=== PATIENT | female | born 1955 | race Hispanic/Latino ===

== ENCOUNTER 2019-12-28 21:54 | Inpatient (IN) | payer OTHER ==
[~2019-12-28 21:54] MED LIST: Heparin 10,000 UNITS/ 10 ML VIAL ONE
[2019-12-28] MEDS ORDERED: Midazolam HCl 5 mg/ml Vial ONE (21:59)
[2019-12-28] MEDS ORDERED: Amiodarone 150 MG/3 ML VIAL ONE (22:00)
[2019-12-28 22:18] LABS: Base Excess-Venous -5.5 mmol/L (-2.0 to 3.0); Bicarbonate (HCO3v) 19.8 mmol/L (22.0-28.0); CO2 Tension (PvCO2) 37.3 mmHg (40.0-50.0); Calcium, Ionized 1.02 mmol/L (See Comments:); Chloride 105 mmol/L (98-107); Hemoglobin - Calc 12.8 g/dL (12.0-16.0); Sodium 143 mmol/L (138-145); vO2 Saturation-calc 98.6 % (60.0-85.0)
[2019-12-28] MEDS ORDERED: Amiodarone 150 MG, Admixture Fee 1 EACH in Dextrose 5% in Water 100 ML IVPB SCH (22:30)
[2019-12-28] MEDS ORDERED: Potassium Chloride 10 MEQ in Premix Bag 1 BAG IVPB SCH (22:30)
[2019-12-28 22:51] LABS: #Basophils 0.1 thou/uL (0.0-0.2); #Eosinphils 0.2 thou/uL (0.0-0.7); #Lymphocytes 2.7 thou/uL (1.20-3.40); #Monocytes 0.6 thou/uL (0.11-0.59); #Neutrophils 11.8 thou/uL (1.40-6.50); %Basophils 0.5 % (0.0-1.0); %Eosinophils 1.2 % (0.0-10.0); %Lymphocytes 17.5 % (21.0-51.0); %Neutrophils 76.9 % (42.0-75.0); Hemoglobin 12.2 g/dL (12.0-16.0); Mean Corpuscular HGB CONC 33.2 g/dL (32.0-36.0); Mean Corpuscular Hemoglobin 30.5 pg (27.0-31.0); Mean Corpuscular Volume 91.9 fL (78.0-98.0); Mean Platelet Volume 8.4 fL (7.4-10.4); Platelet Count 223 thou/uL (130-400); RBC Distribution Width 11.6 % (11.5-14.5); White Blood Cell (WBC) Count 15.3 thou/uL (4.8-10.8)
[2019-12-28 22:54] LABS: INR-International Normal Ratio 1.1; PTT 28.9 sec (22.9-36.1); Prothrombin Time 14.6 sec (12.0-14.7)
[2019-12-28] MEDS ORDERED: Heparin 25,000 units/D5W 500 ML ONE (22:54)
[2019-12-28 23:12] LABS: ALT (SGPT) 114 U/L (8-55); AST (SGOT) 112 U/L (5-34); Albumin 3.5 g/dL (3.4-4.8); Alkaline Phosphatase 78 U/L (40-110); Anion Gap 16 mmol/L (10-20); BUN (Urea Nitrogen) 14 mg/dL (9.8-20.1); Bilirubin, Total 0.6 mg/dL (0.2-1.2); Calc. Creatinine Clearance 0 mL/min (70-130); Calcium 7.5 mg/dL (7.8-10.44); Carbon Dioxide 19 mmol/L (23-31); Chloride 107 mmol/L (98-107); Estimated GFR-MDRD 49; Globulin 2.1 g/dL (2.4-3.5); Glucose 282 mg/dL (80-115); Magnesium 1.7 mg/dL (1.6-2.6); Protein, Total 5.6 g/dL (6.0-8.3); Sodium 139 mmol/L (136-145)
[2019-12-28] MEDS ORDERED: Midazolam HCl 2 mg/2 ml Vial ONE (23:19)
[2019-12-28] MEDS ORDERED: Heparin 10,000 UNITS/1 ML VIAL ONE (23:28)
[2019-12-28 23:34] LABS: CKMB 2.4 ng/mL (0-6.6)
[2019-12-28] MEDS ORDERED: Metoprolol Tartrate 5 MG/5 ML VIAL ONE (23:54)
[2019-12-28] MEDS ORDERED: Nitroglycerin 100MG/250ML BOT 250 ML ONE (23:58)
[2019-12-29] MEDS ORDERED: Metoprolol Tartrate 5 MG/5 ML VIAL ONE (00:20)
[2019-12-29] MEDS ORDERED: Clopidogrel Bisulfate 300 MG TAB PO SCH (00:30)
[2019-12-29] MEDS ORDERED: Potassium Chloride 20 MEQ TAB PO SCH ×3 (00:30→20:00)
[2019-12-29] MEDS ORDERED: Magnesium Sulfate 3 GM in Sodium Chloride 0.9% 100 ML IVPB SCH (00:30)
[2019-12-29] MEDS ORDERED: Metoprolol Tartrate 25 MG TAB PO SCH ×2 (00:30→09:00)
[2019-12-29] MEDS ORDERED: Acetaminophen 325 MG TAB PO PRN (00:33)
[2019-12-29 01:40] VITALS: BMI 35.3
--- NOTE | 2019-12-29 02:36 | HP ---
REASON FOR ADMISSION: Ventricular tachycardia, rapid sustained unstable, possible acute myocardial infarction. HISTORY OF PRESENT ILLNESS: Ms. Rome is a 64-year-old woman. She is visiting from out of town. She said she was feeling okay and then started feeling progressively weak and short of breath. She had a pulse oximeter and was found to have extremely rapid heart rate. The patient's sister from what I understand also is a physician and her sister who advised her to call an ambulance, which was done. The patient in the ambulance was found to be in ventricular tachycardia. She was attempted cardioversion for the heart rate of 250 beats per minute, wide-complex, but that was not successful on arrival here, the patient was still in ventricular tachycardia with a very rapid rate. She had been given 150 mg of amiodarone and she was given additional 150 mg amiodarone and she was cardioverted multiple times and recurrent ventricular tachycardia finally stabilized. The initial EKG after the patient was cardioverted did not show an acute myocardial infarction, but followup EKG was suspicious for an acute infarction and the patient was taken to the cardiac catheterization lab. The patient was taken immediately to the cardiac catheterization lab. She had multiple episodes of ventricular tachycardia in the pie bakery laborer prior to the procedure being started as we were doing preparations and also during the procedure. PAST MEDICAL HISTORY: The patient otherwise had been healthy. No previous cardiac history. Her only history was high blood pressure on hydrochlorothiazide. FAMILY HISTORY: She had multiple siblings who recently had cardiac events including myocardial infarction. SOCIAL HISTORY: No tobacco or alcohol abuse. REVIEW OF SYSTEMS: CONSTITUTIONAL: No significant weight gain or loss. VISION: No changes. HEARING: No changes. PULMONARY: No cough or wheezing. GASTROINTESTINAL: No nausea vomiting, diarrhea. SKIN: No rashes. NEUROLOGIC: No unilateral weakness or numbness. PSYCHIATRIC: No unusual depression or anxiety. PHYSICAL EXAMINATION: GENERAL: This is an ill-appearing 64-year-old woman. VITAL SIGNS: Blood pressure was 120 systolic when she was not in ventricular tachycardia. The patient mildly diaphoretic, not having chest pain at that time. NECK: Neck veins normal. Carotid normal upstrokes. LUNGS: Clear. CARDIAC: Tachycardic . I do not hear murmur, rub, or gallop. ABDOMEN: Soft and nontender. No hepatosplenomegaly. EXTREMITIES: Cool, but she did have palpable pedal pulses. DIAGNOSTIC STUDIES: EKG as outlined above. She had initially a wide-complex tachycardia, typical ventricular tachycardia. After cardioversion, there was no ST elevation of any significance. Followup did show some ST elevation in AVR with ST depression in lead II. The patient was taken to cardiac catheterization lab. She was found to have recurrent ventricular tachycardia requiring cardioversions. Unfortunately the patient could not be sedated significantly for these as her pressure abruptly dropped in the 40 systolic range when she went into ventricular tachycardia on the arterial line. A total of 3 additional cardioversions were done in the pie bakery laborer. The patient was found to have nonobstructive coronary disease and ejection fraction of 20% in the pie bakery laborer. ASSESSMENT: 1. Ventricular tachycardia, unstable, requiring multiple cardioversions. 2. Hypokalemia, potassium 3.0 related to hydrochlorothiazide. 3. History of hypertension. 4. Coronary artery disease does not appear to be obstructive. PLAN: 1. She is on intravenous amiodarone. 2. Beta blockers very helpful in the pie bakery laborer. 3. EVANS inhibitors as blood pressure allows or Entresto. 4. Replete potassium and magnesium. 5. Electrophysiology consultation, will likely need a defibrillator implantation. Job ID: [id number]
[2019-12-29] MEDS: Amiodarone 450 MG, Admixture Fee 1 EACH in Dextrose 5% in Water 250 ML IVPB SCH ×2 (03:44→23:20)
[2019-12-29 04:50] LABS: Anion Gap 12 mmol/L (10-20); BUN (Urea Nitrogen) 12 mg/dL (9.8-20.1); Calc. Creatinine Clearance 90 mL/min (70-130); Calcium 7.6 mg/dL (7.8-10.44); Carbon Dioxide 22 mmol/L (23-31); Chloride 106 mmol/L (98-107); Estimated GFR-MDRD 69; Glucose 210 mg/dL (80-115); Potassium 3.6 mmol/L (3.5-5.1); Sodium 136 mmol/L (136-145)
[2019-12-29 04:55] LABS: Troponin I 4.925 ng/mL (< 0.028)
[2019-12-29] MEDS: Sodium Chloride 0.9% 1,000 ML IV SCH ×2 (06:12→14:05)
--- NOTE | 2019-12-29 07:07 | RAD ---
AP CHEST: Date: 12/28/2019 HISTORY: Diaphoresis. Tachycardia. FINDINGS: Lungs appear clear. No infiltrate or vascular congestion. Mild cardiomegaly. IMPRESSION: No acute lung process apparent. POS: AGW
[2019-12-29 08:07] LABS: Cardiac Risk 5.5 (Less than 4.5)
[2019-12-29] MEDS: Clopidogrel Bisulfate 75 MG TAB PO SCH (08:23)
[2019-12-29] MEDS: Aspirin 81 mg Enteric Coated Tablet PO SCH (08:23)
--- NOTE | 2019-12-29 08:56 | PRG ---
DATE OF SERVICE: 12/29/2019 SUBJECTIVE: Ms. Rome is doing well this morning. She is not having chest pain or pressure. She is not having ventricular tachycardia. The amiodarone had to be stopped early this morning as she is becoming bradycardic, heart rate of 49. OBJECTIVE: VITAL SIGNS: Her blood pressure is now 110 systolic, pulse is in the mid 50s, sinus. LUNGS: Clear. CARDIAC: Normal S1. Normal S2. ABDOMEN: Soft and nontender. Right groin is fine. EXTREMITIES: No edema. DIAGNOSTIC DATA: Peak troponin was 4.925. EKG, no ST changes today. ASSESSMENT: 1. Repetitive and recurrent ventricular tachycardia, requiring multiple cardioversions for unstable ventricular tachycardia. 2. Cardiomyopathy. 3. Hypokalemia, improved to 3.6. 4. Hypomagnesemia, has been repleted. 5. Increase liver function, probably related to hypoperfusion. PLAN: 1. Beta-booker had to be stopped due to bradycardia. 2. We will resume amiodarone. 3. Continue to raise potassium. 4. She will go for defibrillator implantation either today or tomorrow. Needs pacing to give her beta-blockers for her cardiomyopathy as well as for ventricular arrhythmias. Job ID: [id number]
--- NOTE | 2019-12-29 09:37 | CON ---
DATE OF CONSULTATION: HISTORY OF PRESENT ILLNESS: This is a 64-year-old female, from out of town, who presented to the hospital with chest pain, lightheadedness, and shortness of breath. She thought it was asthma attack. She took 4 puffs of the ProAir. EMS was called in and she was found to be in ventricular tachycardia, underwent cardioversion and amiodarone 150. She then underwent an emergency cardiac cath by medical claims examiner in the ICU, reason for consult. She has never smoked. Has history of asthma for about 20 years. No prior history of pneumonia. PAST SURGICAL HISTORY: Apparently, multiple. 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 HOME MEDICINES: 1. Singulair 10. 2. ProAir. 3. Hydrochlorothiazide 12.5. ALLERGIES: NONE. SOCIAL HISTORY: Secretarial work. REVIEW OF SYSTEMS: Otherwise, pertinent for possible sleep apnea. PHYSICAL EXAMINATION: VITAL SIGNS: Pulse 50, blood pressure 110/87, sats 98% on room air, respirations 23. CHEST: No wheezing or crackles. CARDIAC: Normal S1, S2. No gallops. ABDOMEN: No masses. LABORATORY DATA: X-ray was clear. White cell count 15,000, H and H 12 and 36. Lytes are normal. Blood sugar slightly elevated. ASSESSMENT: Acute coronary syndrome, cardiomyopathy, ventricular tachycardia. PLAN: We will restart some home medicine including one of her inhalers. Otherwise, she is on amiodarone, Plavix, beta blockers. We will follow while in the ICU. Consultation note, 70 minutes, 50% direct patient care. Job ID: [id number]
--- NOTE | 2019-12-29 10:18 | CCLSPC ---
This is done in the setting of just prior to the cardiac catheterization. Also, one was done during the cardiac catheterization. The patient had developed unstable ventricular tachycardia, very rapid rate over 200 beats per minute with severe drop in blood pressure. She was given 200 joules direct current energy. This was not successful in cardioverting her. Then, 300 joules was given, which did convert her. Later, she had recurrent ventricular tachycardia. Again, 300 joules was used, and this did convert her to sinus rhythm and sinus tachycardia. CONCLUSION: Successful cardioversion. Job ID: [id number]
[2019-12-29 12:36] LABS: Anion Gap 13 mmol/L (10-20); BUN (Urea Nitrogen) 10 mg/dL (9.8-20.1); Calc. Creatinine Clearance 96 mL/min (70-130); Carbon Dioxide 19 mmol/L (23-31); Chloride 110 mmol/L (98-107); Estimated GFR-MDRD 74; Glucose 119 mg/dL (80-115); Sodium 137 mmol/L (136-145)
[2019-12-29 12:49] LABS: Critical Call Chem Troponin I RESULT DECREASING; Troponin I 3.852 ng/mL (< 0.028)
--- NOTE | 2019-12-29 14:21 | CON ---
DATE OF CONSULTATION: 12/29/2019 This is Tg Villarreal NP dictating a report for Jim Christine MD. REASON FOR CONSULTATION: Ventricular tachycardia. HISTORY OF PRESENT ILLNESS: Ms. Rome is a 64-year-old woman, visiting from out of town. She had sudden onset of shortness of breath and also weakness. She found her heart rate was extremely rapid and she called 911. She was found to be in ventricular tachycardia and cardioversion was attempted on the ambulance for heart rate of 250 beats per minute, but was not successful. She received 150 mg IV amiodarone bolus x2 and cardioverted multiple times for her VT, finally stabilized and she remained in sinus rhythm. Her EKG did not reveal any ST elevations or suspicion for acute RI, but due to her ventricular arrhythmias, she was taken to the lab for ischemic evaluation. She also has a strong family history of acute RI. Her potassium was 3.0 and magnesium was 1.7. Her left heart catheterization did not reveal any occlusive coronary artery disease. It was not consistent with takotsubo or global cardiomyopathy. It is felt this is a primary VT event, prompting EP consultation. Ms. Rome is currently feeling well. She remains in the ICU on amiodarone. She denies any current heart racing, palpitations, chest pain, pressure, syncope, near syncope, stroke, or stroke-like symptoms. REVIEW OF SYSTEMS: Twelve-point review of systems is otherwise unremarkable. PAST MEDICAL HISTORY: Hypertension. FAMILY HISTORY: Positive for coronary artery disease and acute RI. SOCIAL HISTORY: Negative for alcohol, tobacco, or illicit drug use. DATABASE: EKGs initially revealed wide-complex tachycardia, rapid ventricular rates, approximately 250 beats per minute, which is likely ventricular tachycardia. LABORATORY DATA: Hematology: WBC 15.3, hemoglobin and hematocrit are stable at 12.2 and 36.8 respectively. Chemistry: Potassium 3.0 on arrival and now 5.0, and creatinine 0.79. Magnesium 1.7 on arrival. Troponins peaked at 4.9. Left heart catheterization showed nonobstructive coronary artery disease and LVEF 20%. IMPRESSION: 1. Ventricular tachycardia, primary event without obvious reversible cause, requiring multiple cardioversions and IV amiodarone. 2. Newly found systolic CHF with nonischemic cardiomyopathy, left ventricular ejection fraction 20% by left heart catheterization. 3. Troponin rise likely secondary to prolonged tachycardia, not primary RI. 4. Hypertension. 5. Bradycardia on BB/Amiodarone. PLAN AND RECOMMENDATIONS: Ms. Rome is a pleasant woman who presented in very rapid VT, requiring multiple IV amiodarone boluses and multiple cardioversion attempts. Eventually, this did successfully restore sinus rhythm. She was not found to have any obstructive coronary artery disease by [facility], despite elevated troponins, which felt to be secondary to the prolonged tachycardai and cardioversions. Also no identifiable provoking factors for her VT except mild hypokalemia seen initially, but VT recurred after replentishing potassium. Scar related ventricular tachycardia is liklely to be a primary event with underlying sublcinical cardiomyopathy process of unclear duration. She has also been seen to have some significant bradycardia on necessary BB/amiodarone therapy. My recommendation would be to continue amiodarone/BB and proceed tomorrow am with a dual-chamber ICD implant given her dificult to supress ventricular tachycardia and secondary bradycardia requiring pacing. We discussed the potential risks, benefits, and alternatives with patient and physician daughter. She voices understanding and is willing to proceed. Keep her n.p.o. after midnight and make arrangements potentially for tomorrow morning. Thank you for allowing me to participate in the care of this patient. For now, I would also continue amiodarone. She may require a VT ablation in the future. Job ID: [id number] MTDD
[2019-12-29] MEDS ORDERED: Furosemide 100 MG/10 ML VIAL SLOW IVP SCH (17:15)
[2019-12-29] MEDS ORDERED: Losartan 25 MG TAB PO SCH (17:30)
[2019-12-29] MEDS: Mometasone 200 MCG/Formoterol 5 MCG 120 PUFF INHALER INH SCH (21:43)
[2019-12-30] MEDS: Sodium Chloride 0.9% 1,000 ML IV SCH (02:11)
[2019-12-30 03:53] LABS: #Basophils 0.1 thou/uL (0.0-0.2); #Eosinphils 0.1 thou/uL (0.0-0.7); #Lymphocytes 2.9 thou/uL (1.20-3.40); #Monocytes 1.1 thou/uL (0.11-0.59); #Neutrophils 8.3 thou/uL (1.40-6.50); %Basophils 0.5 % (0.0-1.0); %Eosinophils 0.6 % (0.0-10.0); %Lymphocytes 22.9 % (21.0-51.0); %Monocytes 9.1 % (0.0-10.0); %Neutrophils 66.9 % (42.0-75.0); Mean Corpuscular HGB CONC 32.5 g/dL (32.0-36.0); Mean Corpuscular Hemoglobin 30.1 pg (27.0-31.0); Mean Corpuscular Volume 92.7 fL (78.0-98.0); Mean Platelet Volume 8.6 fL (7.4-10.4); Platelet Count 231 thou/uL (130-400); RBC Distribution Width 11.8 % (11.5-14.5); Red Blood Cell (RBC) Count 4.34 mill/uL (4.20-5.40); White Blood Cell (WBC) Count 12.5 thou/uL (4.8-10.8)
[2019-12-30 04:05] LABS: ALT (SGPT) 76 U/L (8-55); AST (SGOT) 58 U/L (5-34); Albumin 3.4 g/dL (3.4-4.8); Alkaline Phosphatase 68 U/L (40-110); Anion Gap 15 mmol/L (10-20); BUN (Urea Nitrogen) 10 mg/dL (9.8-20.1); Bilirubin, Total 0.7 mg/dL (0.2-1.2); Calc. Creatinine Clearance 88 mL/min (70-130); Carbon Dioxide 22 mmol/L (23-31); Chloride 105 mmol/L (98-107); Estimated GFR-MDRD 67; Globulin 2.9 g/dL (2.4-3.5); Glucose 123 mg/dL (80-115); Potassium 4.5 mmol/L (3.5-5.1); Protein, Total 6.3 g/dL (6.0-8.3); Sodium 137 mmol/L (136-145)
[2019-12-30] MEDS ORDERED: CEFAZOLIN 1 GM VIAL ONE (06:44)
[2019-12-30] MEDS ORDERED: Gentamicin 80 MG/2 ML VIAL ONE (06:44)
[2019-12-30] MEDS: Mometasone 200 MCG/Formoterol 5 MCG 120 PUFF INHALER INH SCH ×2 (07:18→18:50)
[2019-12-30] MEDS ORDERED: Fentanyl 100 MCG/2 ML VIAL ONE (07:38)
[2019-12-30] MEDS ORDERED: Midazolam HCl 2 mg/2 ml Vial ONE (07:39)
--- NOTE | 2019-12-30 07:56 | RAD ---
EXAM: Single view of the chest HISTORY: Congestive heart failure COMPARISON: 12/28/2019 FINDINGS: Single view of the chest shows an enlarged but stable cardiomediastinal silhouette. Bilater al veil-like opacities may represent layering pleural effusions. The bones are unremarkable. IMPRESSION: Possible small bilateral pleural effusions.
[2019-12-30] MEDS ORDERED: Losartan 25 MG TAB PO SCH (09:00)
[2019-12-30] MEDS ORDERED: Carvedilol 3.125 MG TAB PO SCH ×2 (09:15→17:00)
[2019-12-30] MEDS ORDERED: Sodium Chloride 0.9% 1,000 ML IV SCH (09:15)
[2019-12-30] MEDS ORDERED: Amiodarone 200 MG TAB PO SCH (09:15)
[2019-12-30] MEDS ORDERED: Spironolactone 25 MG TAB PO SCH (09:15)
[2019-12-30] MEDS ORDERED: Acetaminophen/Codeine 30-300mg Tablet PO PRN ×2 (09:15)
--- NOTE | 2019-12-30 09:28 | PRG ---
DATE OF SERVICE: 12/30/2019 SUBJECTIVE: This morning, she is better, status post pacemaker, cardiomyopathy, DC, coronary artery disease. No wheezing. OBJECTIVE: VITAL SIGNS: Pulse 74, blood pressure 130/79, sats 90%, and respirations 20. CHEST: Minimal crackles. No wheezing. CARDIAC: Normal S1 . LABORATORY DATA: Unremarkable. IMAGING STUDIES: X-ray shows CHF. IMPRESSION: 1. Coronary artery disease, cardiomyopathy, congestive heart failure. 2. Asthma, status post pacemaker. Pulmonary blanco, she is stable. Continue present treatment. Disposition as per Cardiology. Job ID: [id number]
[2019-12-30] MEDS: Aspirin 81 mg Enteric Coated Tablet PO SCH (10:07)
[2019-12-30] MEDS: Clopidogrel Bisulfate 75 MG TAB PO SCH (10:07)
[2019-12-30] MEDS ORDERED: PROPOFOL 200 MG/20 ML VIAL ONE (11:38)
--- NOTE | 2019-12-30 13:16 | PRG ---
DATE OF SERVICE: 12/30/2019 SUBJECTIVE: Ms. Rome is doing well post defibrillator implantation. She is sitting up without any complaints. OBJECTIVE: VITAL SIGNS: Blood pressure is 106/63, pulse 74 and sinus. LUNGS: Clear. CARDIAC: Normal S1, normal S2. ABDOMEN: Soft, nontender. EXTREMITIES: There is no edema. ASSESSMENT: 1. Status post repetitive episodes of ventricular tachycardia, requiring cardioversions. 2. Status post defibrillator implantation. 3. Coronary artery disease, nonobstructive. 4. Cardiomyopathy. PLAN: 1. Start Entresto tonight. 2. Start carvedilol. 3. Transition to oral amiodarone. 4. Add spironolactone and she will need to be in the hospital a day or two more to make sure she is stable prior to discharge. Job ID: [id number]
[2019-12-30 13:29] LABS: SARS-CoV-2 MS2 Positive; SARS-CoV-2 N Gene Negative; SARS-CoV-2 S Gene Negative; SARS-CoV-2 orf1ab Negative
[2019-12-30] MEDS: CEFAZOLIN 2 GM in Premix Bag 1 BAG IVPB SCH ×4 (15:13→23:12)
[2019-12-30] MEDS: Amiodarone 200 MG TAB PO SCH ×2 (15:17→19:41)
[2019-12-30] MEDS: Rosuvastatin 20 MG TAB PO SCH (19:42)
[2019-12-31 04:13] LABS: Anion Gap 11 mmol/L (10-20); BUN (Urea Nitrogen) 11 mg/dL (9.8-20.1); Calc. Creatinine Clearance 101 mL/min (70-130); Calcium 7.9 mg/dL (7.8-10.44); Carbon Dioxide 23 mmol/L (23-31); Chloride 105 mmol/L (98-107); Estimated GFR-MDRD 78; Glucose 133 mg/dL (80-115); Potassium 4.1 mmol/L (3.5-5.1); Sodium 135 mmol/L (136-145)
[2019-12-31] MEDS: Cephalexin 250 MG CAP PO SCH ×4 (05:27→23:32)
[2019-12-31] MEDS ORDERED: Cephalexin 250 MG CAP PO SCH (06:00)
[2019-12-31] MEDS: Mometasone 200 MCG/Formoterol 5 MCG 120 PUFF INHALER INH SCH ×2 (06:50→20:08)
[2019-12-31] MEDS ORDERED: Carvedilol 3.125 MG TAB PO SCH (08:00)
[2019-12-31] MEDS: Enoxaparin Sodium 40 MG/0.4 ML SYRINGE SC SCH (08:03)
[2019-12-31] MEDS: Spironolactone 25 MG TAB PO SCH (08:03)
[2019-12-31] MEDS: Clopidogrel Bisulfate 75 MG TAB PO SCH (08:04)
[2019-12-31] MEDS: Amiodarone 200 MG TAB PO SCH ×3 (08:04→20:18)
[2019-12-31] MEDS: Aspirin 81 mg Enteric Coated Tablet PO SCH (08:04)
--- NOTE | 2019-12-31 08:49 | PRG ---
DATE OF SERVICE: 12/31/2019 SUBJECTIVE: Ms. Rome is doing very well today, sitting at about 30 degrees angle in bed. OBJECTIVE: VITAL SIGNS: Her blood pressure is in the 120s systolic, pulse 62 and it is regular. LUNGS: Clear. CARDIAC: Normal S1, normal S2. There is no murmur, rub, or gallop. ABDOMEN: Soft and nontender. EXTREMITIES: No edema. ASSESSMENT: 1. Status post multiple episodes of sustained ventricular tachycardia requiring cardioversion. 2. Cardiomyopathy. 3. Nonobstructive coronary artery disease. 4. Status post defibrillator implantation, dual-chamber device. PLAN: 1. She is started on Entresto last night. 2. Increase carvedilol today. 3. Aspirin and Plavix. 4. Low-dose Lovenox while in the hospital. 5. Statin therapy. 6. She is being loaded with amiodarone. I will go and keep her here until Friday. I am concerned that if she goes home too early, she could have recurrent defibrillator discharges and would require rehospitalization. The patient continues to do well. Beta blockers were very helpful in suppressing the ventricular tachycardia initially. Start to get her up and around more today. Job ID: [id number]
--- NOTE | 2019-12-31 08:54 | RAD ---
CHEST 1 VIEW: Date: 12/31/2019 HISTORY: Post ICD implant placement. COMPARISON: 12/30/2019. FINDINGS: Left ICD has been placed without pneumothorax. Bilateral pleural effusions and bilateral vascular con gestion and lower lobe parenchymal changes with slight improvement from the prior study. No new proce ss. IMPRESSION: 1. Left ICD placement. 2. Minimal cardiomegaly with small pleural effusions and vascular congestion and bilateral lower lob e parenchymal changes showing minimal overall improvement. POS: RRE
--- NOTE | 2019-12-31 12:07 | PDOC.EP ---
- Subjective Date: 12/31/19 Time: 12:03 Interval History: follow up post ICD implant. She is doing well today with minimal discomfort around the ICD site. Having some mild increase in BMs, likely from amiodarone - Review of Systems Respiratory: denies: cough, shortness of breath, sputum, wheezing Cardiology: denies: chest pain, heart racing, light headedness, palpitations, passing out Gastrointestinal: reports: diarrhea. denies: abdominal pain, constipation, nausea, vomitting Musculoskeletal: denies: unstable gait, falls, leg pain - Objective Allergies/Adverse Reactions: Allergies Allergy/AdvReac Type Severity Reaction Status Date / Time No Known Drug Allergies Allergy Verified 12/29/19 10:19 Current Medications Acetaminophen (Tylenol) 650 mg PO Q6H PRN PRN Reason: Pain Acetaminophen/Codeine Phosphate (Tylenol #3) 1 tab PO Q4H PRN PRN Reason: Mild Pain (1-3) Amiodarone HCl (Cordarone) 400 mg PO TID REPLACED BY [facility] Stop: 01/06/20 23:59 Last Admin: 12/31/19 08:04 Dose: 400 mg Aspirin (Ecotrin) 81 mg PO DAILY REPLACED BY [facility] Last Admin: 12/31/19 08:04 Dose: 81 mg Carvedilol (Coreg) 6.25 mg PO BID-[facility] Last Admin: 12/31/19 08:04 Dose: 6.25 mg Cephalexin (Keflex) 500 mg PO Q6HR REPLACED BY [facility] Stop: 01/07/20 23:59 Last Admin: 12/31/19 05:27 Dose: Not Given Clopidogrel Bisulfate (Plavix) 75 mg PO DAILY REPLACED BY [facility] Last Admin: 12/31/19 08:04 Dose: 75 mg Enoxaparin Sodium (Lovenox) 40 mg SC 0900 REPLACED BY [facility] Last Admin: 12/31/19 08:03 Dose: 40 mg Mometasone Furoate/Formoterol Fumar (Dulera 200 Mcg/5 Mcg Inhaler) 1 puff INH BID-RT REPLACED BY [facility] Last Admin: 12/31/19 06:50 Dose: 1 puff Rosuvastatin Calcium (Crestor) 20 mg PO HS REPLACED BY [facility] Last Admin: 12/30/19 19:42 Dose: 20 mg Sacubitril/Valsartan (Entresto 24 Mg-26 Mg Tablet) 1 tab PO BID-WM REPLACED BY [facility] Last Admin: 12/31/19 08:05 Dose: 1 tab Sodium Chloride (Flush - Normal Saline) 10 ml IVF PRN PRN PRN Reason: Saline Flush Sodium Chloride (Flush - Normal Saline) 10 ml IVF PRN PRN PRN Reason: Saline Flush Spironolactone (Aldactone) 25 mg PO QAM-[facility] Last Admin: 12/31/19 08:03 Dose: 25 mg Vital Signs & Weight: Vital Signs Temp 12/31/19 06:00 98.7 F 12/31/19 04:00 98.4 F Weight 180 lb 12.465 oz I/O: I/O 12/30/19 12/31/19 01/01/20 06:59 06:59 06:59 Intake Total 2088.2 660 240 Output Total 2830 2400 250 Balance -741.8 -1740 -10 - Physical Exam General: alert & oriented x3, appears well, no apparent distress, speech clear, affect appropriate HEENT: mucus membranes moist, normocephaly Neck: supple neck, midline trachea, no JVD/HJR, no lymphadenopathy Cardiology: regular rate and rhythm, no murmur, PMI nondisplaced Lungs: clear to auscultation, normal breath sounds, no wheeze, rales, rhonchi Neurology: cranial nerve 2-12 intact, grossly intact, no lateralizing findings Abdomen: unremarkable, active bowel sounds, no hepatosplenomegaly Extremities: dry, strong pulses, warm Skin: device site stable w/o swelling, left sided device - Labs Result Diagrams: 12/30/19 03:05 12/31/19 03:15 - EKG Interpretation EKG Method: Telemetry EKG shows: Sinus rhythm - Assessment/Plan Assessment/Plan: 1. Ventricular tachycardia -amiodarone loading 2. Systolic HF with NICM, LVEF 20% 3. Hypertension -now slightly hypotensive 4. Bradycardia 5. Dual chamber ICD - Med[employer]onic - CXR post implant stable/ no pneumothorax - no bradycardia - keflex post implant x 7days Continue amiodarone 400mg PO TID over the weekend. Watch for QTc prolongation. Plan to wean down amio loading on Friday. Rhythm remains stable today.
--- NOTE | 2019-12-31 12:39 | PQF ---
Q38 [address] [facility] Updated: March 2019 CLINICAL DOCUMENTATION CLARIFICATION FORM: Patient Name: SHYANNE BOWERS Date of : 1955 Account: [id number] Admit Date: 12/29/2019 Facility: [facility] [place] [address]. ROME Date: 12/31/19 Please exercise your independent, professional judgment in responding to the clarification form. Clinical indicators are provided on the bottom of this form for your review. Please check appropriate box(es): AMI TYPE: [ ] NSTEMI [ ] IN TYPE 2 [ ] DEMAND ISCHEMIA [ ] DUE TO: [ ] Other: [ ] Takotsubo syndrome [ ] Other diagnosis ____ [ ] Unable to determine In addition, please specify: Present on Admission (POA): [ ] Yes [ ] No [ ] Unable to determine For continuity of documentation, please document condition throughout progress notes and discharge summary. Thank You. To be completed by CDI/Coding staff for physician review: CLINICAL INDICATORS - SIGNS / SYMPTOMS / LABS / RESULTS AND LOCATION IN EMR ER NOTE: "STEMI" H&P (LATRICIA): "VT, POSSIBLY AMI" PN 12/28: CARDIOMYOPATHY, PEAK TROPONIN 4.925 "LHC DID NOT REVEAL ANY OCCLUSIVE CAD" PN NOTE 12/29 (Javier CONDE NP): TROPONIN RISE LIKELY SECONDARY TO PROLONGED TACHYCARDIA, NOT PRIMARY IN." RISKS: CONSULTATION NOTE 12/28 (Javier CONDE NP) "STRONG FAMILY H/O AMI" VTACH (ER NOTE, CATH REPORT 12/28, H&P) NEWLY FOUND SYSTOLIC CHF WITH NONISCHEMIC CARDIOMYOPATHY (PN 12/29 Javier CONDE NP) TREATMENT: LHC AND CARDIOVERSION 12/28 ICD INSERTION CDS Signature: Kathia Mora RN Phone #: [phone] Date: 12/30 This is a permanent part of the Medical Record [facility]
[2019-12-31] MEDS: Carvedilol 3.125 MG TAB PO SCH (16:48)
[2019-12-31] MEDS: Lidocaine Viscous Sol 2% 15 ml UD Cup SSP PRN (17:31)
[2019-12-31] MEDS: Rosuvastatin 20 MG TAB PO SCH (20:18)
[2020-01-01 04:39] LABS: Anion Gap 11 mmol/L (10-20); BUN (Urea Nitrogen) 15 mg/dL (9.8-20.1); Calc. Creatinine Clearance 96 mL/min (70-130); Calcium 8.2 mg/dL (7.8-10.44); Carbon Dioxide 23 mmol/L (23-31); Chloride 106 mmol/L (98-107); Estimated GFR-MDRD 74; Glucose 112 mg/dL (80-115); Sodium 136 mmol/L (136-145)
[2020-01-01] MEDS: Cephalexin 250 MG CAP PO SCH ×3 (05:16→17:04)
[2020-01-01] MEDS: Mometasone 200 MCG/Formoterol 5 MCG 120 PUFF INHALER INH SCH ×2 (07:03→19:09)
[2020-01-01] MEDS: Clopidogrel Bisulfate 75 MG TAB PO SCH (09:18)
[2020-01-01] MEDS: Amiodarone 200 MG TAB PO SCH ×3 (09:18→20:39)
[2020-01-01] MEDS: Enoxaparin Sodium 40 MG/0.4 ML SYRINGE SC SCH (09:19)
[2020-01-01] MEDS: Aspirin 81 mg Enteric Coated Tablet PO SCH (09:19)
[2020-01-01] MEDS: Spironolactone 25 MG TAB PO SCH (09:19)
[2020-01-01] MEDS: Carvedilol 3.125 MG TAB PO SCH ×2 (09:19→17:03)
[2020-01-01] MEDS: Lidocaine Viscous Sol 2% 15 ml UD Cup SSP PRN (17:04)
[2020-01-01] MEDS: Rosuvastatin 20 MG TAB PO SCH (20:39)
[2020-01-02] MEDS: Cephalexin 250 MG CAP PO SCH ×4 (00:04→18:16)
[2020-01-02 04:31] LABS: Anion Gap 11 mmol/L (10-20); BUN (Urea Nitrogen) 14 mg/dL (9.8-20.1); Calc. Creatinine Clearance 94 mL/min (70-130); Calcium 8.2 mg/dL (7.8-10.44); Carbon Dioxide 24 mmol/L (23-31); Chloride 107 mmol/L (98-107); Estimated GFR-MDRD 73; Glucose 105 mg/dL (80-115); Potassium 3.9 mmol/L (3.5-5.1); Sodium 138 mmol/L (136-145)
[2020-01-02] MEDS: Mometasone 200 MCG/Formoterol 5 MCG 120 PUFF INHALER INH SCH ×2 (07:19→18:42)
[2020-01-02] MEDS: Amiodarone 200 MG TAB PO SCH ×3 (07:59→21:06)
[2020-01-02] MEDS: Aspirin 81 mg Enteric Coated Tablet PO SCH (07:59)
[2020-01-02] MEDS: Spironolactone 25 MG TAB PO SCH (07:59)
[2020-01-02] MEDS: Clopidogrel Bisulfate 75 MG TAB PO SCH (07:59)
[2020-01-02] MEDS: Carvedilol 3.125 MG TAB PO SCH ×2 (07:59→18:16)
[2020-01-02] MEDS: Enoxaparin Sodium 40 MG/0.4 ML SYRINGE SC SCH (08:00)
--- NOTE | 2020-01-02 10:01 | PRG ---
DATE OF SERVICE: 01/01/2020 SUBJECTIVE: This morning, she is awake, alert, and responsive. OBJECTIVE: VITAL SIGNS: Temperature 97.7, respirations 18, saturations are 96% on room air, blood pressure 115/59. CHEST: Decreased breath sounds. No wheezing. CARDIAC: Normal S1, S2. No gallops. ABDOMEN: No masses. IMPRESSION AND PLAN: 1. Coronary artery disease. 2. Congestive heart failure. 3. Asthma. 4. Myocardial infarction. Pulmonary blanco, she is stable. I will continue on the Dulera until she goes home. Please call if needed. Job ID: [id number]
[2020-01-02] MEDS: Rosuvastatin 20 MG TAB PO SCH (21:06)
[2020-01-03] MEDS: Cephalexin 250 MG CAP PO SCH ×3 (00:34→11:35)
[2020-01-03 05:22] LABS: Anion Gap 11 mmol/L (10-20); BUN (Urea Nitrogen) 14 mg/dL (9.8-20.1); Calc. Creatinine Clearance 96 mL/min (70-130); Calcium 8.5 mg/dL (7.8-10.44); Carbon Dioxide 24 mmol/L (23-31); Chloride 106 mmol/L (98-107); Estimated GFR-MDRD 76; Glucose 103 mg/dL (80-115); Potassium 4.2 mmol/L (3.5-5.1); Sodium 137 mmol/L (136-145)
[2020-01-03] MEDS: Mometasone 200 MCG/Formoterol 5 MCG 120 PUFF INHALER INH SCH (07:18)
[2020-01-03] MEDS: Spironolactone 25 MG TAB PO SCH (08:18)
[2020-01-03] MEDS: Enoxaparin Sodium 40 MG/0.4 ML SYRINGE SC SCH (08:18)
[2020-01-03] MEDS: Carvedilol 3.125 MG TAB PO SCH (08:18)
[2020-01-03] MEDS: Clopidogrel Bisulfate 75 MG TAB PO SCH (08:18)
[2020-01-03] MEDS: Aspirin 81 mg Enteric Coated Tablet PO SCH (08:18)
[2020-01-03] MEDS: Amiodarone 200 MG TAB PO SCH (08:18)
[2020-01-03 11:35] VITALS: BP 109/67; TEMP 98.1
--- NOTE | 2020-01-03 12:43 | PDOC.EP ---
- Subjective Date: 01/03/20 Time: 12:39 Interval History: eager to go home and feels well. - Review of Systems Constitutional: denies: chills, fever, malaise, sweats, weakness Respiratory: denies: cough, dry, hemoptysis, pleuritic pain, shortness of breath , SOB with excertion, sputum, wheezing Cardiology: denies: chest pain, edema, heart racing, light headedness, orthopnea , paroxysmal noc. dyspnea, palpitations, passing out, pleuritic pain, pressure, swelling Gastrointestinal: denies: abdominal pain, constipation, diarrhea, hematochezia, melena, nausea, vomitting Musculoskeletal: denies: unstable gait, falls, neck pain, shoulder pain, arm pain, hand pain, leg pain, foot pain - Objective Allergies/Adverse Reactions: Allergies Allergy/AdvReac Type Severity Reaction Status Date / Time No Known Drug Allergies Allergy Verified 12/29/19 10:19 Current Medications Acetaminophen (Tylenol) 650 mg PO Q6H PRN PRN Reason: Pain Acetaminophen/Codeine Phosphate (Tylenol #3) 1 tab PO Q4H PRN PRN Reason: Mild Pain (1-3) Amiodarone HCl (Cordarone) 200 mg PO TID [facility] Stop: 01/06/20 23:59 Last Admin: 01/03/20 08:18 Dose: 200 mg Aspirin (Ecotrin) 81 mg PO DAILY [facility] Last Admin: 01/03/20 08:18 Dose: 81 mg Carvedilol (Coreg) 3.125 mg PO BID-[facility] Last Admin: 01/03/20 08:18 Dose: 3.125 mg Cephalexin (Keflex) 500 mg PO Q6HR [facility] Stop: 01/07/20 23:59 Last Admin: 01/03/20 11:35 Dose: 500 mg Clopidogrel Bisulfate (Plavix) 75 mg PO DAILY [facility] Last Admin: 01/03/20 08:18 Dose: 75 mg Enoxaparin Sodium (Lovenox) 40 mg SC 0900 [facility] Last Admin: 01/03/20 08:18 Dose: 40 mg Lidocaine HCl (Xylocaine 2% Viscous) 15 ml SSP QIDPRN PRN PRN Reason: Mouth Irritation Last Admin: 01/01/20 17:04 Dose: 15 ml Mometasone Furoate/Formoterol Fumar (Dulera 200 Mcg/5 Mcg Inhaler) 1 puff INH BID-RT [facility] Last Admin: 01/03/20 07:18 Dose: 1 puff Rosuvastatin Calcium (Crestor) 20 mg PO HS [facility] Last Admin: 01/02/20 21:06 Dose: 20 mg Sacubitril/Valsartan (Entresto 24 Mg-26 Mg Tablet) 1 tab PO BID-WM [facility] Sodium Chloride (Flush - Normal Saline) 10 ml IVF PRN PRN PRN Reason: Saline Flush Last Admin: 01/02/20 08:00 Dose: 10 ml Sodium Chloride (Flush - Normal Saline) 10 ml IVF PRN PRN PRN Reason: Saline Flush Spironolactone (Aldactone) 25 mg PO QAM-WM [facility] Last Admin: 01/03/20 08:18 Dose: 25 mg Vital Signs & Weight: Vital Signs Temp Pulse Pulse Pulse Resp BP BP 01/03/20 11:31 98.1 F 65 18 01/03/20 09:40 70 67 136/63 110/60 01/03/20 06:56 98.2 F 62 18 01/03/20 04:11 98.4 F 63 18 BP BP Pulse Ox Pulse Ox Pulse Ox 01/03/20 11:31 109/67 98 01/03/20 09:40 97 96 01/03/20 06:56 110/57 L 96 01/03/20 04:11 114/57 L 95 Weight 177 lb I/O: I/O 01/02/20 01/03/20 01/04/20 06:59 06:59 06:59 Intake Total 360 1740 Output Total 600 Balance 360 1140 - Physical Exam General: alert & oriented x3, appears well, no apparent distress, speech clear, affect appropriate HEENT: mucus membranes moist, normocephaly Neck: supple neck, midline trachea, no JVD/HJR, no masses, no bruit, no lymphadenopathy, no thromegaly Cardiology: regular rate and rhythm, no murmur, regular rate, regular rhythm, PMI nondisplaced Lungs: clear to auscultation, normal breath sounds, normal exam, no wheeze, rales, rhonchi, no wheezes, no rales, no rhonchi Neurology: cranial nerve 2-12 intact, grossly intact, motor function intact, sensory function intact, negative rhomberg, coordination normal, no lateralizing findings Skin: device site stable w/o swelling - Labs Result Diagrams: 12/30/19 03:05 01/03/20 04:10 - EKG Interpretation EKG Method: Telemetry EKG shows: Sinus rhythm - Device Device: dual, defibrillator Device Result: [employer] - Assessment/Plan Assessment/Plan: 1. Ventricular tachycardia -amiodarone loading 2. Systolic HF with NICM, LVEF 20% 3. Hypertension -now slightly hypotensive 4. Bradycardia 5. Dual chamber ICD - Medtronic - CXR post implant stable/ no pneumothorax - no bradycardia - keflex post implant x 7days No QTc prolongation. Amiodarone dose reduced to 200mg TID over the weekend. Rhythm stable. DC on amiodarone taper to a goal of 200mg daily. Also keflex for 7days post ICD implant. Will see back in 2 weeks for wound/device check
--- NOTE | 2020-01-04 08:49 | DIS ---
DATE OF ADMISSION: 12/29/2019 DATE OF DISCHARGE: 01/03/2020 FINAL DIAGNOSES: 1. Status post episodes of extremely rapid ventricular tachycardia, requiring multiple cardioversions. 2. Non-ST elevation myocardial infarction. 3. Hypercholesterolemia. 4. History of hypertension. PROCEDURES: Left heart catheterization, fractional flow reserve measurement, defibrillator implantation. MEDICATIONS: At the time of discharge, 1. Spironolactone 25 mg a day. 2. Carvedilol initial dose 3.125 mg twice a day, dose to be increased as tolerated for blood pressure. 3. Carvedilol 75 mg a day. 4. Crestor 20 mg a day. 5. Amiodarone 200 mg three times a day for 2 weeks, then 200 mg twice a day for 2 weeks, then 200 mg a day. 6. Entresto one twice a day, dose to be increased as tolerated. 7. Aspirin 81 mg a day. HOSPITAL COURSE: Please see admission note for full details. Briefly, Ms. Rome is a 64-year-old woman who came to the hospital with cardiovascular collapse, is found to have extremely rapid ventricular tachycardia. She required multiple cardioversions; in fact, the cardioversion in the ambulance was not successful. She did require high energy doses to convert to sinus rhythm along with amiodarone. She is taken to the cardiac catheterization lab on emergency basis, found to have an ejection fraction of 20%. Coronaries: left main normal, LAD 10%, circumflex 40%, right coronary had a 60% area of narrowing. Fractional flow reserve was done, it was 0.93. The patient was mildly hypokalemic initially. Potassium was repleted. She has continued to be loaded with amiodarone. Beta-blockers seem to be very helpful in controlling ventricular tachycardia. Ultimately, she was stabilized and a dual-chamber defibrillator was placed. The patient was kept over the weekend to load with amiodarone. Low doses of carvedilol had to be used in view of the relatively low blood pressure. Entresto was also started. Plan will be to increase both of these as blood pressure allows. PERTINENT LABORATORY DATA: Peak troponin was 4.925. LDL cholesterol 153. Magnesium is 1.7 initially. Potassium initially was 3.0. The patient is doing well, is released home to be followed up in the office. She [place] out of town. She will be staying in this area for a few weeks to titrate her medicines up, ultimately go back to [facility]. Job ID: [id number]
== END 2020-01-03 14:17 | disposition home or self-care (01) | DRG 224 ==
LOC: ERS 21:54 → CCU 23:10 → CCL 23:23 → CCU 12-29 00:53 → 2NO 12-31 18:07
PROVIDERS: ADMIT Internal Medicine Cardiovascular Disease; ATTEND Internal Medicine Cardiovascular Disease
PROC: 4A023N7 Measurement of Cardiac Sampling and Pressure, Left Heart, Percutaneous Approach (ICD-10-PCS; 2019-12-28)
PROC: B2111ZZ Fluoroscopy of Multiple Coronary Arteries using Low Osmolar Contrast (ICD-10-PCS; 2019-12-28)
PROC: B2151ZZ Fluoroscopy of Left Heart using Low Osmolar Contrast (ICD-10-PCS; 2019-12-28)
PROC: 4A033BC Measurement of Arterial Pressure, Coronary, Percutaneous Approach (ICD-10-PCS; 2019-12-28)
PROC: 5A2204Z Restoration of Cardiac Rhythm, Single (ICD-10-PCS; 2019-12-28)
PROC: 5A2204Z Restoration of Cardiac Rhythm, Single (ICD-10-PCS; 2019-12-29)
PROC: 3E0234Z Introduction of Serum, Toxoid and Vaccine into Muscle, Percutaneous Approach (ICD-10-PCS; 2019-12-29)
PROC: 0JH608Z Insertion of Defibrillator Generator into Chest Subcutaneous Tissue and Fascia, Open Approach (ICD-10-PCS; principal; 2019-12-30)
PROC: 02HK3KZ Insertion of Defibrillator Lead into Right Ventricle, Percutaneous Approach (ICD-10-PCS; 2019-12-30)
PROC: 02H63KZ Insertion of Defibrillator Lead into Right Atrium, Percutaneous Approach (ICD-10-PCS; 2019-12-30)
DX: I47.2 Ventricular tachycardia (principal); I21.4 Non-ST elevation (NSTEMI) myocardial infarction; I42.8 Other cardiomyopathies; I50.20 Unspecified systolic (congestive) heart failure; Z11.59 Encounter for screening for other viral diseases; E78.00 Pure hypercholesterolemia, unspecified; J45.909 Unspecified asthma, uncomplicated; R00.1 Bradycardia, unspecified; E87.6 Hypokalemia; I25.10 Atherosclerotic heart disease of native coronary artery without angina pectoris; T50.2X5A Adverse effect of carbonic-anhydrase inhibitors, benzothiadiazides and other diuretics, initial encounter; I11.0 Hypertensive heart disease with heart failure; R94.5 Abnormal results of liver function studies; E83.42 Hypomagnesemia; Z79.899 Other long term (current) drug therapy; Z23 Encounter for immunization
CPT/HCPCS: 33249; 36415; 71045; 76942; 80048; 80053; 80061; 82330; 82435; 82553; 82803; 83735; 84132; 84295; 84484; 85014; 85025; 85347; 85610; 85730; 87635; 90471; 90732; 93005; 93010; 93458; 93571; 93641; 93798; 96365; 96366; 96374; 96375; 99152; 99153; C1769; G0009; J0153; J0282; J0690; J1580; J1644; J1650; J1940; J2250; J2704; J3010; J3475; J3480; J3490; J7070; U0003

== ENCOUNTER 2020-03-09 12:06 | Outpatient (CLI) | payer BC ==
--- NOTE | 2020-03-09 12:52 | RAD ---
XR Chest Pa Lat STANDARD HISTORY: Chronic systolic heart failure, hypotension COMPARISON: 12/31/2019 FINDINGS: The heart size is at upper limits of normal. Left-sided AICD remains in place. The lungs ar e well expanded without focal areas of consolidation, pneumothorax or pleural effusions. IMPRESSION: No radiographic evidence of acute cardiopulmonary process.
== END 2020-03-09 12:07 | disposition home or self-care (01) ==
LOC: BICRAD 12:06
PROVIDERS: ATTEND Internal Medicine Cardiovascular Disease
DX: I50.22 Chronic systolic (congestive) heart failure (principal)
CPT/HCPCS: 36415; 71046; 80053; 80061; 83880; 84443; 85025

== ENCOUNTER 2021-06-13 14:28 | Inpatient (IN) | payer BC ==
[2021-06-13 15:21] LABS: #Eosinphils 0.1 thou/uL (0.0-0.7); #Monocytes 0.7 thou/uL (0.11-0.59); #Neutrophils 3.9 thou/uL (1.40-6.50); %Basophils 0.5 % (0.0-1.0); %Eosinophils 1.5 % (0.0-10.0); %Lymphocytes 29.8 % (21.0-51.0); %Monocytes 10.9 % (0.0-10.0); %Neutrophils 57.4 % (42.0-75.0); Hemoglobin 14.1 g/dL (12.0-16.0); Mean Corpuscular HGB CONC 32.8 g/dL (32.0-36.0); Mean Corpuscular Hemoglobin 31.9 pg (27.0-31.0); Mean Corpuscular Volume 97.1 fL (78.0-98.0); Platelet Count 252 thou/uL (130-400); RBC Distribution Width 11.8 % (11.5-14.5); Red Blood Cell (RBC) Count 4.43 mill/uL (4.20-5.40); White Blood Cell (WBC) Count 6.7 thou/uL (4.8-10.8)
[2021-06-13 15:31] LABS: PTT 30.2 sec (22.9-36.1); Prothrombin Time 13.6 sec (12.0-14.7)
[2021-06-13 15:44] LABS: ALT (SGPT) 30 U/L (8-55); AST (SGOT) 27 U/L (5-34); Albumin 4.2 g/dL (3.4-4.8); Alkaline Phosphatase 63 U/L (40-110); Anion Gap 15 mmol/L (10-20); BUN (Urea Nitrogen) 33 mg/dL (9.8-20.1); Bilirubin, Total 0.5 mg/dL (0.2-1.2); CK (CPK) 98 U/L (29-168); Calc. Creatinine Clearance 0 mL/min (70-130); Calcium 9.4 mg/dL (7.8-10.44); Carbon Dioxide 23 mmol/L (23-31); Chloride 104 mmol/L (98-107); Globulin 2.7 g/dL (2.4-3.5); Glucose 114 mg/dL (80-115); Potassium 5.2 mmol/L (3.5-5.1); Protein, Total 6.9 g/dL (5.8-8.1); Sodium 137 mmol/L (136-145)
[2021-06-13 16:17] LABS: Bacteria/HPF None Seen HPF (None Seen); Bilirubin Negative (Negative); Blood, Urine 1+ (Negative); Clarity Clear (Clear); Glucose, Urine (Dipstick) 500 mg/dL (Negative); Ketone, Urine Negative (Negative); Leukocyte Negative Leu/uL (Negative); Nitrite Negative (Negative); Protein, Urine (Dipstick) Negative (Neg-Trace); RBC/HPF 0-3 HPF (0-3); Specific Gravity, Urine 1.006 (1.002-1.036); Squamous Epithelial 0-3 HPF (0-3); Urobilinogen Normal mg/dL (Less than 2); WBC/HPF 0-3 HPF (0-3)
[2021-06-13 19:15] LABS: Troponin I 0.021 ng/mL (< 0.028)
[2021-06-13] MEDS ORDERED: Nitroglycerin 0.4 MG TAB (25 Tab Bottle) SL PRN (19:27)
[2021-06-13] MEDS ORDERED: Sodium Chloride 0.9% 500 ML IV SCH (19:30)
[2021-06-13] MEDS ORDERED: Senokot S 8.6-50 MG TAB PO PRN (19:30)
[2021-06-13] MEDS ORDERED: Calcium Carbonate 500 MG ChewTAB PO PRN (19:30)
[2021-06-13] MEDS ORDERED: Electrolyte Replacement Protocol 1 EACH FS SCH (19:30)
[2021-06-13] MEDS ORDERED: Acetaminophen 325 MG TAB PO PRN (19:30)
[2021-06-13] MEDS ORDERED: Electrolyte Replacement Protocol FS PRN (19:45)
[2021-06-13] MEDS ORDERED: Ipratropium Bromide 2.5 ml Neb NEB PRN (20:18)
[2021-06-13 21:48] VITALS: BMI 33.4
[2021-06-14 05:13] LABS: #Basophils 0.1 thou/uL (0.0-0.2); #Eosinphils 0.1 thou/uL (0.0-0.7); #Lymphocytes 2.3 thou/uL (1.20-3.40); #Monocytes 0.7 thou/uL (0.11-0.59); #Neutrophils 3.5 thou/uL (1.40-6.50); %Eosinophils 2.1 % (0.0-10.0); %Lymphocytes 34.4 % (21.0-51.0); %Monocytes 10.6 % (0.0-10.0); %Neutrophils 51.9 % (42.0-75.0); Hemoglobin 13.8 g/dL (12.0-16.0); Mean Corpuscular HGB CONC 33.4 g/dL (32.0-36.0); Mean Corpuscular Hemoglobin 32.8 pg (27.0-31.0); Mean Corpuscular Volume 98.2 fL (78.0-98.0); Mean Platelet Volume 7.2 fL (7.4-10.4); Platelet Count 227 thou/uL (130-400); RBC Distribution Width 11.9 % (11.5-14.5); Red Blood Cell (RBC) Count 4.21 mill/uL (4.20-5.40); White Blood Cell (WBC) Count 6.8 thou/uL (4.8-10.8)
[2021-06-14 05:24] LABS: Anion Gap 13 mmol/L (10-20); BUN (Urea Nitrogen) 29 mg/dL (9.8-20.1); Calc. Creatinine Clearance 56 mL/min (70-130); Calcium 9.1 mg/dL (7.8-10.44); Carbon Dioxide 23 mmol/L (23-31); Chloride 104 mmol/L (98-107); Glucose 94 mg/dL (80-115); Magnesium 2.1 mg/dL (1.6-2.6); Potassium 4.4 mmol/L (3.5-5.1); Sodium 136 mmol/L (136-145)
[2021-06-14 05:29] LABS: Troponin I 0.038 ng/mL (< 0.028)
[2021-06-14] MEDS ORDERED: Amiodarone 200 MG TAB PO SCH (09:00)
[2021-06-14] MEDS ORDERED: Aspirin 325 mg Enteric Coated Tablet PO SCH (09:00)
[2021-06-14] MEDS ORDERED: Clopidogrel Bisulfate 75 MG TAB PO SCH (09:00)
[2021-06-14] MEDS ORDERED: Aspirin 81 mg Enteric Coated Tablet PO SCH (12:00)
[2021-06-14 14:29] LABS: SARS-CoV-2 PCR by NAA Not Detected (NotDetected)
[2021-06-14] MEDS: DOBUTamine 500 mg/250 ml 250 ML IVPB SCH (17:10)
[2021-06-14] MEDS: Montelukast Sodium 10 mg Tablet PO SCH (20:39)
[2021-06-14] MEDS: Ezetimibe 10 MG TAB PO SCH (20:39)
[2021-06-14] MEDS: Sacubitril 49 MG/Valsartan 51 MG TABLET PO SCH (20:39)
[2021-06-14] MEDS: Carvedilol 3.125 MG TAB PO SCH (20:39)
[2021-06-14] MEDS: Rosuvastatin 20 MG TAB PO SCH (20:39)
[2021-06-14] MEDS: Cholecalciferol 1,000 UNITS (25 MCG) TAB PO SCH (20:39)
[2021-06-15] MEDS: Sacubitril 49 MG/Valsartan 51 MG TABLET PO SCH ×2 (08:24→20:15)
[2021-06-15] MEDS: Carvedilol 3.125 MG TAB PO SCH ×2 (08:24→20:15)
[2021-06-15] MEDS: Aspirin 81 mg Enteric Coated Tablet PO SCH (08:24)
[2021-06-15] MEDS: Empagliflozin 10 MG TAB PO SCH (08:24)
[2021-06-15] MEDS: Clopidogrel Bisulfate 75 MG TAB PO SCH (08:24)
[2021-06-15] MEDS: Spironolactone 25 MG TAB PO SCH (08:24)
[2021-06-15] MEDS ORDERED: Torsemide 20 MG TAB PO SCH (09:00)
[2021-06-15] MEDS ORDERED: Amiodarone 200 MG TAB PO SCH (13:00)
[2021-06-15] MEDS: Rosuvastatin 20 MG TAB PO SCH (20:15)
[2021-06-15] MEDS: Montelukast Sodium 10 mg Tablet PO SCH (20:16)
[2021-06-15] MEDS: Ezetimibe 10 MG TAB PO SCH (20:16)
[2021-06-15] MEDS: Cholecalciferol 1,000 UNITS (25 MCG) TAB PO SCH (20:16)
[2021-06-16] MEDS: Spironolactone 25 MG TAB PO SCH (09:36)
[2021-06-16] MEDS: Amiodarone 200 MG TAB PO SCH (09:36)
[2021-06-16] MEDS: Aspirin 81 mg Enteric Coated Tablet PO SCH (09:36)
[2021-06-16] MEDS: Sacubitril 49 MG/Valsartan 51 MG TABLET PO SCH (09:37)
[2021-06-16] MEDS: Clopidogrel Bisulfate 75 MG TAB PO SCH (09:37)
[2021-06-16] MEDS: Carvedilol 3.125 MG TAB PO SCH (09:37)
[2021-06-16] MEDS: DOBUTamine 500 mg/250 ml 250 ML IVPB SCH (09:39)
[2021-06-16] MEDS: Empagliflozin 10 MG TAB PO SCH (09:39)
[2021-06-16 10:27] LABS: Anion Gap 12 mmol/L (10-20); BUN (Urea Nitrogen) 31 mg/dL (9.8-20.1); Calc. Creatinine Clearance 47 mL/min (70-130); Calcium 9.4 mg/dL (7.8-10.44); Carbon Dioxide 24 mmol/L (23-31); Chloride 103 mmol/L (98-107); Glucose 128 mg/dL (80-115); Potassium 4.5 mmol/L (3.5-5.1); Sodium 134 mmol/L (136-145)
[2021-06-16] MEDS ORDERED: Ondansetron ODT 4 MG TAB PO PRN (16:20)
[2021-06-16] MEDS: Rosuvastatin 20 MG TAB PO SCH (20:45)
[2021-06-16] MEDS: Cholecalciferol 1,000 UNITS (25 MCG) TAB PO SCH (20:45)
[2021-06-16] MEDS: Montelukast Sodium 10 mg Tablet PO SCH (20:45)
[2021-06-16] MEDS: Ezetimibe 10 MG TAB PO SCH (20:46)
[2021-06-17 05:13] LABS: Magnesium 2.1 mg/dL (1.6-2.6)
[2021-06-17 05:17] LABS: Troponin I 0.034 ng/mL (< 0.028)
[2021-06-17] MEDS: Spironolactone 25 MG TAB PO SCH (08:47)
[2021-06-17] MEDS: Aspirin 81 mg Enteric Coated Tablet PO SCH (08:47)
[2021-06-17] MEDS: Clopidogrel Bisulfate 75 MG TAB PO SCH (08:47)
[2021-06-17] MEDS: Empagliflozin 10 MG TAB PO SCH (08:47)
[2021-06-17] MEDS: Amiodarone 200 MG TAB PO SCH (08:48)
[2021-06-17] MEDS ORDERED: Furosemide 20 MG/2 ML VIAL SLOW IVP SCH (09:00)
[2021-06-17] MEDS: DOBUTamine 500 mg/250 ml 250 ML IVPB SCH (10:32)
[2021-06-17] MEDS: Montelukast Sodium 10 mg Tablet PO SCH (20:30)
[2021-06-17] MEDS: Rosuvastatin 20 MG TAB PO SCH (20:30)
[2021-06-17] MEDS: Ezetimibe 10 MG TAB PO SCH (20:30)
[2021-06-17] MEDS: Cholecalciferol 1,000 UNITS (25 MCG) TAB PO SCH (20:30)
[2021-06-18 05:34] LABS: #Basophils 0.1 thou/uL (0.0-0.2); #Eosinphils 0.2 thou/uL (0.0-0.7); #Lymphocytes 1.8 thou/uL (1.20-3.40); #Monocytes 0.8 thou/uL (0.11-0.59); %Eosinophils 2.5 % (0.0-10.0); %Lymphocytes 26.8 % (21.0-51.0); %Neutrophils 57.8 % (42.0-75.0); Hemoglobin 13.3 g/dL (12.0-16.0); Mean Corpuscular HGB CONC 34.1 g/dL (32.0-36.0); Mean Corpuscular Hemoglobin 32.9 pg (27.0-31.0); Mean Corpuscular Volume 96.3 fL (78.0-98.0); Mean Platelet Volume 7.1 fL (7.4-10.4); Platelet Count 227 thou/uL (130-400); RBC Distribution Width 11.5 % (11.5-14.5); Red Blood Cell (RBC) Count 4.05 mill/uL (4.20-5.40); White Blood Cell (WBC) Count 6.8 thou/uL (4.8-10.8)
[2021-06-18 05:49] LABS: ALT (SGPT) 23 U/L (8-55); AST (SGOT) 22 U/L (5-34); Albumin 3.9 g/dL (3.4-4.8); Alkaline Phosphatase 52 U/L (40-110); Anion Gap 13 mmol/L (10-20); BUN (Urea Nitrogen) 29 mg/dL (9.8-20.1); Bilirubin, Total 0.5 mg/dL (0.2-1.2); Calc. Creatinine Clearance 48 mL/min (70-130); Calcium 9.3 mg/dL (7.8-10.44); Carbon Dioxide 23 mmol/L (23-31); Chloride 102 mmol/L (98-107); Globulin 2.7 g/dL (2.4-3.5); Glucose 93 mg/dL (80-115); Magnesium 2.2 mg/dL (1.6-2.6); Phosphorus 3.6 mg/dL (2.3-4.7); Potassium 4.2 mmol/L (3.5-5.1); Protein, Total 6.6 g/dL (5.8-8.1); Sodium 134 mmol/L (136-145)
[2021-06-18] MEDS: Furosemide 20 MG/2 ML VIAL SLOW IVP SCH ×2 (06:22→14:28)
[2021-06-18] MEDS: Aspirin 81 mg Enteric Coated Tablet PO SCH (09:22)
[2021-06-18] MEDS: Spironolactone 25 MG TAB PO SCH (09:22)
[2021-06-18] MEDS: Amiodarone 200 MG TAB PO SCH (09:22)
[2021-06-18] MEDS: Clopidogrel Bisulfate 75 MG TAB PO SCH (09:23)
[2021-06-18] MEDS: Empagliflozin 10 MG TAB PO SCH (09:23)
[2021-06-18] MEDS: DOBUTamine 500 mg/250 ml 250 ML IVPB SCH (11:25)
[2021-06-18] MEDS ORDERED: DOBUTamine 500 mg/250 ml 250 ML IVPB SCH (15:00)
[2021-06-18] MEDS: Cholecalciferol 1,000 UNITS (25 MCG) TAB PO SCH (19:55)
[2021-06-18] MEDS: Rosuvastatin 20 MG TAB PO SCH (19:55)
[2021-06-18] MEDS: Ezetimibe 10 MG TAB PO SCH (19:55)
[2021-06-18] MEDS: Montelukast Sodium 10 mg Tablet PO SCH (19:55)
[2021-06-19 05:19] LABS: Anion Gap 12 mmol/L (10-20); BUN (Urea Nitrogen) 32 mg/dL (9.8-20.1); Calc. Creatinine Clearance 48 mL/min (70-130); Calcium 9.3 mg/dL (7.8-10.44); Carbon Dioxide 26 mmol/L (23-31); Chloride 102 mmol/L (98-107); Glucose 92 mg/dL (80-115); Sodium 136 mmol/L (136-145)
[2021-06-19] MEDS: Furosemide 20 MG/2 ML VIAL SLOW IVP SCH ×2 (05:40→16:39)
[2021-06-19] MEDS: Aspirin 81 mg Enteric Coated Tablet PO SCH (09:13)
[2021-06-19] MEDS: Amiodarone 200 MG TAB PO SCH (09:13)
[2021-06-19] MEDS: Clopidogrel Bisulfate 75 MG TAB PO SCH (09:13)
[2021-06-19] MEDS: Spironolactone 25 MG TAB PO SCH (09:13)
[2021-06-19] MEDS: Empagliflozin 10 MG TAB PO SCH (09:13)
[2021-06-19] MEDS ORDERED: DOBUTamine 500 mg/250 ml 250 ML IVPB SCH (17:24)
[2021-06-19] MEDS: Rosuvastatin 20 MG TAB PO SCH (20:42)
[2021-06-19] MEDS: Cholecalciferol 1,000 UNITS (25 MCG) TAB PO SCH (20:42)
[2021-06-19] MEDS: Montelukast Sodium 10 mg Tablet PO SCH (20:42)
[2021-06-19] MEDS: Ezetimibe 10 MG TAB PO SCH (20:42)
[2021-06-20] MEDS: Furosemide 20 MG/2 ML VIAL SLOW IVP SCH (05:35)
[2021-06-20 06:00] LABS: Anion Gap 13 mmol/L (10-20); BUN (Urea Nitrogen) 36 mg/dL (9.8-20.1); Calc. Creatinine Clearance 45 mL/min (70-130); Calcium 9.3 mg/dL (7.8-10.44); Carbon Dioxide 26 mmol/L (23-31); Chloride 99 mmol/L (98-107); Glucose 86 mg/dL (80-115); Potassium 4.1 mmol/L (3.5-5.1); Sodium 134 mmol/L (136-145)
[2021-06-20] MEDS: Clopidogrel Bisulfate 75 MG TAB PO SCH (09:28)
[2021-06-20] MEDS: Aspirin 81 mg Enteric Coated Tablet PO SCH (09:28)
[2021-06-20] MEDS: Empagliflozin 10 MG TAB PO SCH (09:28)
[2021-06-20] MEDS: Spironolactone 25 MG TAB PO SCH (09:28)
[2021-06-20] MEDS: Amiodarone 200 MG TAB PO SCH (09:28)
[2021-06-20 11:26] VITALS: BP 110/59; TEMP 97.8
[2021-06-21] MEDS ORDERED: Torsemide 20 MG TAB PO SCH (09:00)
== END 2021-06-20 14:08 | disposition home or self-care (01) | DRG 314 ==
LOC: ERS 14:28 → ERHOLD 18:11 → 2SE 21:44 → 2NO 06-14 13:57 → OBSVTOIN 06-16 09:40
PROVIDERS: ADMIT Internal Medicine; ATTEND Internal Medicine
DX: I95.9 Hypotension, unspecified (principal); R57.0 Cardiogenic shock; I50.43 Acute on chronic combined systolic (congestive) and diastolic (congestive) heart failure; I42.8 Other cardiomyopathies; I13.0 Hypertensive heart and chronic kidney disease with heart failure and stage 1 through stage 4 chronic kidney disease, or unspecified chronic kidney disease; N17.9 Acute kidney failure, unspecified; I42.0 Dilated cardiomyopathy; I47.2 Ventricular tachycardia; Z20.822 Contact with and (suspected) exposure to COVID-19; I25.10 Atherosclerotic heart disease of native coronary artery without angina pectoris; N18.30 Chronic kidney disease, stage 3 unspecified; E87.5 Hyperkalemia; K21.9 Gastro-esophageal reflux disease without esophagitis; E78.5 Hyperlipidemia, unspecified; I25.5 Ischemic cardiomyopathy; I48.91 Unspecified atrial fibrillation; J45.909 Unspecified asthma, uncomplicated; Z95.810 Presence of automatic (implantable) cardiac defibrillator; Z79.51 Long term (current) use of inhaled steroids; Z79.899 Other long term (current) drug therapy; I25.2 Old myocardial infarction; Z95.5 Presence of coronary angioplasty implant and graft
CPT/HCPCS: 36415; 70450; 71045; 80048; 80053; 81003; 81015; 82550; 83735; 83880; 84100; 84484; 85025; 85610; 85730; 93005; 93306; 96365; 96366; G0378; J1250; J1940; U0003; U0005

== ENCOUNTER 2021-08-08 14:56 | Outpatient (CLI) | payer BC | END 2021-08-08 14:57 | disposition home or self-care (01) | LOC: BICMAMMO 14:56 | PROVIDERS: ATTEND Family Medicine | DX: Z12.31 Encounter for screening mammogram for malignant neoplasm of breast (principal); Z80.3 Family history of malignant neoplasm of breast | CPT/HCPCS: 77063; 77067 ==

== ENCOUNTER 2021-11-02 12:15 | Outpatient (CLI) | payer BC | END 2021-11-02 12:16 | disposition home or self-care (01) | LOC: BICULT 12:15 | PROVIDERS: ATTEND Internal Medicine Nephrology | DX: N18.30 Chronic kidney disease, stage 3 unspecified (principal) | CPT/HCPCS: 76770 ==

== ENCOUNTER 2022-12-20 13:16 | Outpatient (CLI) | payer MEDICARE | END 2022-12-20 13:17 | disposition home or self-care (01) | LOC: BICMAMMO 13:16 | PROVIDERS: ATTEND Family Medicine | DX: Z12.31 Encounter for screening mammogram for malignant neoplasm of breast (principal); Z80.3 Family history of malignant neoplasm of breast | CPT/HCPCS: 77063; 77067 ==

== ENCOUNTER 2023-04-24 13:10 | Inpatient (IN) | payer MEDICARE ==
[2023-04-24 13:46] LABS: #Basophils 0.1 thou/uL (0.0-0.2); #Eosinphils 0.2 thou/uL (0.0-0.7); #Monocytes 0.7 thou/uL (0.11-0.59); #Neutrophils 3.4 thou/uL (1.40-6.50); %Basophils 0.7 % (0.0-1.0); %Eosinophils 2.1 % (0.0-10.0); %Lymphocytes 37.7 % (21.0-51.0); %Monocytes 10.3 % (0.0-10.0); %Neutrophils 48.9 % (42.0-75.0); Hematocrit 44.7 % (36.0-47.0); Hemoglobin 14.4 g/dL (12.0-16.0); Mean Corpuscular HGB CONC 32.2 g/dL (32.0-36.0); Mean Corpuscular Volume 96.3 fl (78.0-98.0); Mean Platelet Volume 9.5 fL (7.4-10.4); Platelet Count 267 10x3/uL (130-400); Red Blood Cell (RBC) Count 4.64 mill/uL (4.20-5.40)
[2023-04-24 14:14] LABS: Troponin I 0.035 ng/mL (< 0.028)
[2023-04-24 14:22] LABS: ALT (SGPT) 18 U/L (8-55); AST (SGOT) 21 U/L (5-34); Albumin 4.7 g/dL (3.4-4.8); Alkaline Phosphatase 75 U/L (40-110); Anion Gap 11 mmol/L (10-20); BUN (Urea Nitrogen) 18 mg/dL (9.8-20.1); Bilirubin, Total 0.6 mg/dL (0.2-1.2); Calc. Creatinine Clearance 0 mL/min (70-130); Calcium 9.6 mg/dL (7.8-10.44); Carbon Dioxide 27 mmol/L (23-31); Chloride 106 mmol/L (98-107); Estimated GFR 64; Globulin 2.4 g/dL (2.4-3.5); Glucose 105 mg/dL (80-115); Lipase 25 U/L (8-78); Potassium 4.4 mmol/L (3.5-5.1); Protein, Total 7.1 g/dL (5.8-8.1); Sodium 140 mmol/L (136-145)
[2023-04-24] MEDS ORDERED: Aspirin Chewable 81 MG TAB ONE (15:07)
[2023-04-24 15:27] LABS: Magnesium 2.1 mg/dL (1.6-2.6)
[2023-04-24 16:14] LABS: Bacteria/HPF None Seen HPF (None Seen); Bilirubin Negative (Negative); Blood, Urine 1+ (Negative); CAUTI Indications for Culture Dysuria,urgency,freq; Clarity Clear (Clear); Glucose, Urine (Dipstick) Greater than 1000 mg/dL (Negative); Ketone, Urine Negative (Negative); Leukocyte Negative Leu/uL (Negative); Nitrite Negative (Negative); Protein, Urine (Dipstick) Negative (Neg-Trace); Specific Gravity, Urine 1.024 (1.002-1.036); Squamous Epithelial 0-3 HPF (0-3); Urobilinogen Normal mg/dL (Less than 2); WBC/HPF 0-3 HPF (0-3); pH, Urine 6.5 (5.0-9.0)
[2023-04-24 16:19] LABS: Urine Culture Reflex No No
[2023-04-24 16:51] LABS: Troponin I 0.045 ng/mL (< 0.028)
[2023-04-24] MEDS ORDERED: Acetaminophen 325 MG TAB PO PRN (17:38)
[2023-04-24] MEDS ORDERED: Ondansetron ODT 4 MG TAB PO PRN (17:38)
[2023-04-24 19:53] LABS: Troponin I 0.044 ng/mL (< 0.028)
[2023-04-24 20:15] VITALS: BMI 32.3
[2023-04-24] MEDS ORDERED: Rosuvastatin 20 MG TAB PO SCH (21:00)
[2023-04-24] MEDS ORDERED: Montelukast Sodium 10 mg Tablet PO SCH (21:30)
[2023-04-24] MEDS ORDERED: Sacubitril 24MG/Valsartan 26 MG TAB PO SCH (21:30)
[2023-04-24] MEDS ORDERED: Ezetimibe 10 MG TAB PO SCH (21:30)
[2023-04-24 23:42] LABS: Troponin I 0.039 ng/mL (< 0.028)
[2023-04-25 04:56] LABS: #Eosinphils 0.1 thou/uL (0.0-0.7); #Monocytes 0.6 thou/uL (0.11-0.59); #Neutrophils 2.8 thou/uL (1.40-6.50); %Basophils 0.7 % (0.0-1.0); %Eosinophils 2.4 % (0.0-10.0); %Lymphocytes 38.3 % (21.0-51.0); %Monocytes 10.2 % (0.0-10.0); %Neutrophils 47.9 % (42.0-75.0); Hematocrit 40.5 % (36.0-47.0); Hemoglobin 13.1 g/dL (12.0-16.0); Mean Corpuscular HGB CONC 32.3 g/dL (32.0-36.0); Mean Corpuscular Hemoglobin 31.4 pg (27.0-31.0); Mean Corpuscular Volume 97.1 fl (78.0-98.0); Mean Platelet Volume 9.7 fL (7.4-10.4); Platelet Count 226 10x3/uL (130-400); RBC Distribution Width 13.2 % (11.5-14.5); Red Blood Cell (RBC) Count 4.17 mill/uL (4.20-5.40); White Blood Cell (WBC) Count 5.8 10x3/uL (4.8-10.8)
[2023-04-25 05:46] LABS: Anion Gap 15 mmol/L (10-20); BUN (Urea Nitrogen) 18 mg/dL (9.8-20.1); Calc. Creatinine Clearance 69 mL/min (70-130); Calcium 8.8 mg/dL (7.8-10.44); Carbon Dioxide 24 mmol/L (23-31); Chloride 106 mmol/L (98-107); Estimated GFR 66; Glucose 85 mg/dL (80-115); Potassium 4.6 mmol/L (3.5-5.1); Sodium 140 mmol/L (136-145)
[2023-04-25] MEDS ORDERED: Spironolactone 25 MG TAB PO SCH (08:45)
[2023-04-25] MEDS ORDERED: Furosemide 20 MG/2 ML VIAL SLOW IVP SCH (09:00)
[2023-04-25] MEDS ORDERED: Sacubitril 24MG/Valsartan 26 MG TAB PO SCH ×2 (09:00→21:00)
[2023-04-25] MEDS: Amiodarone 200 MG TAB PO SCH ×3 (09:07→20:19)
[2023-04-25] MEDS: Aspirin 81 mg Enteric Coated Tablet PO SCH (09:09)
[2023-04-25] MEDS: Empagliflozin 10 MG TAB PO SCH (09:09)
[2023-04-25] MEDS: Ezetimibe 10 MG TAB PO SCH (20:15)
[2023-04-25] MEDS: Montelukast Sodium 10 mg Tablet PO SCH (20:15)
[2023-04-25] MEDS: Rosuvastatin 20 MG TAB PO SCH (20:16)
[2023-04-26] MEDS: Amiodarone 200 MG TAB PO SCH ×3 (09:25→21:08)
[2023-04-26] MEDS: Aspirin 81 mg Enteric Coated Tablet PO SCH (09:25)
[2023-04-26] MEDS: Empagliflozin 10 MG TAB PO SCH (09:25)
[2023-04-26] MEDS: Spironolactone 25 MG TAB PO SCH (09:26)
[2023-04-26] MEDS: Ezetimibe 10 MG TAB PO SCH (21:08)
[2023-04-26] MEDS: Montelukast Sodium 10 mg Tablet PO SCH (21:08)
[2023-04-26] MEDS: Rosuvastatin 20 MG TAB PO SCH (21:08)
[2023-04-27] MEDS: Amiodarone 200 MG TAB PO SCH (08:37)
[2023-04-27] MEDS: Spironolactone 25 MG TAB PO SCH (08:38)
[2023-04-27] MEDS: Empagliflozin 10 MG TAB PO SCH (08:38)
[2023-04-27] MEDS: Aspirin 81 mg Enteric Coated Tablet PO SCH (08:38)
[2023-04-27 11:27] VITALS: BP 117/61; TEMP 98
== END 2023-04-27 12:25 | disposition home or self-care (01) | DRG 315 ==
LOC: ERS 13:10 → 2NO 17:31
PROVIDERS: ADMIT Internal Medicine; ATTEND Hospitalist
DX: I42.8 Other cardiomyopathies (principal); I50.42 Chronic combined systolic (congestive) and diastolic (congestive) heart failure; T82.110A Breakdown (mechanical) of cardiac electrode, initial encounter; I49.3 Ventricular premature depolarization; R00.2 Palpitations; I11.0 Hypertensive heart disease with heart failure; J45.909 Unspecified asthma, uncomplicated; E78.5 Hyperlipidemia, unspecified; K21.9 Gastro-esophageal reflux disease without esophagitis; K00.0 Anodontia; R77.8 Other specified abnormalities of plasma proteins; I25.10 Atherosclerotic heart disease of native coronary artery without angina pectoris; G47.33 Obstructive sleep apnea (adult) (pediatric); Z95.810 Presence of automatic (implantable) cardiac defibrillator; Z79.82 Long term (current) use of aspirin; Z79.899 Other long term (current) drug therapy; Z82.49 Family history of ischemic heart disease and other diseases of the circulatory system
CPT/HCPCS: 36415; 71045; 80048; 80053; 81001; 83690; 83735; 83880; 84484; 85025; 93005; 93306

== ENCOUNTER 2024-02-03 13:57 | Outpatient (CLI) | payer MEDICARE | END 2024-02-03 13:58 | disposition home or self-care (01) | LOC: BICMAMMO 13:57 | PROVIDERS: ATTEND Family Medicine | DX: Z12.31 Encounter for screening mammogram for malignant neoplasm of breast (principal); M85.851 Other specified disorders of bone density and structure, right thigh; M81.0 Age-related osteoporosis without current pathological fracture; Z80.3 Family history of malignant neoplasm of breast | CPT/HCPCS: 77063; 77067; 77080 ==

== ENCOUNTER 2024-07-01 14:54 | Outpatient (CLI) | payer MEDICARE | END 2024-07-01 14:55 | disposition home or self-care (01) | LOC: BICRAD 14:54 | PROVIDERS: ATTEND Family Medicine | DX: M50.30 Other cervical disc degeneration, unspecified cervical region (principal); M47.812 Spondylosis without myelopathy or radiculopathy, cervical region; M43.12 Spondylolisthesis, cervical region; M25.78 Osteophyte, vertebrae | CPT/HCPCS: 72040 ==